=== PATIENT | female | born 1955 | race Caucasian/White ===

== ENCOUNTER 2017-10-01 16:23 | Emergency (ER) | payer SELFPAY ==
[~2017-10-01] VITALS: Ht 167.6 cm; Wt 77.0 kg
[2017-10-01] MEDS ORDERED: ONDANSETRON 2MG/ML, 2ML IVPush ONE (17:00)
[2017-10-01] MEDS ORDERED: SODIUM CHLORIDE 0.9% 1,000ML IVBOLUS ONE (17:00)
[2017-10-01] MEDS ORDERED: SODIUM CHLORIDE FLUSH 10ML SYR IVF ONE (17:00)
[2017-10-01 17:07] LABS: BASOPHILS # (AUTO) 0.03 x10^3/uL (0-0.1); BASOPHILS % (AUTO) 0 % (0-1); EOSINOPHILS # (AUTO) 0.26 x10^3/uL (0-0.4); EOSINOPHILS % (AUTO) 4 % (1-7); LYMPHOCYTES # (AUTO) 1.91 x10^3/uL (1-3.4); LYMPHOCYTES % (AUTO) 26 % (22-44); MD NO; MEAN CORPUSCULAR HEMOGLOBIN 31.6 pg (27.0-34.8); MEAN CORPUSCULAR HGB CONC 33.8 g/dL (32.4-35.8); MEAN CORPUSCULAR VOLUME 93.4 fL (80-100); MEAN PLATELET VOLUME 8.5 fL (7.4-10.4); MONOCYTES # (AUTO) 0.45 x10^3/uL (0.2-0.8); MONOCYTES % (AUTO) 6 % (2-9); NEUTROPHILS % (AUTO) 63 % (42-75); PLATELET COUNT 219 x10^3/uL (130-400); RED CELL DISTRIBUTION WIDTH 12.8 % (9.6-15.2)
[2017-10-01 17:18] LABS: ALBUMIN 3.9 g/dL (3.4-5.0); ANION GAP 12 mmol/L (5-15); CALCIUM 8.7 mg/dL (8.5-10.1); CHLORIDE 107 mmol/L (98-107)
[2017-10-01 17:21] LABS: ALANINE AMINOTRANSFERASE 30 U/L (12-78); ALKALINE PHOSPHATASE 90 U/L (45-117); BILIRUBIN,TOTAL 0.3 mg/dL (0.2-1.0); CREATININE 1.16 mg/dL (0.55-1.02); TOTAL PROTEIN 7.3 g/dL (6.4-8.2)
[2017-10-01] MEDS ORDERED: ONDANSETRON 2MG/ML, 2ML ONE (17:46)
[2017-10-01 17:56] VITALS: BP 137/80
[2017-10-01 18:44] LABS: MICROSCOPIC NOT IND
[2017-10-01 18:48] LABS: CULTURE INDICATED? NO
== END 2017-10-01 19:34 | disposition other institution (70) ==
LOC: ED 19:27
DX: R10.84 Generalized abdominal pain (principal); R11.2 Nausea with vomiting, unspecified
CPT/HCPCS: 36415; 74022; 80053; 81003; 83690; 85025; 96361; 96374; 99285; J2405; J7030

== ENCOUNTER 2018-05-03 11:37 | Emergency (ER) | payer OTHER ==
[~2018-05-03] VITALS: Ht 167.6 cm; Wt 75.0 kg
[2018-05-03] MEDS ORDERED: SODIUM CHLORIDE FLUSH 10ML SYR IVF ONE (12:00)
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
[2018-05-03 12:36] LABS: BASOPHILS # (AUTO) 0.03 x10^3/uL (0-0.1); BASOPHILS % (AUTO) 0 % (0-1); EOSINOPHILS # (AUTO) 0.02 x10^3/uL (0-0.4); EOSINOPHILS % (AUTO) 0 % (1-7); LYMPHOCYTES # (AUTO) 1.21 x10^3/uL (1-3.4); LYMPHOCYTES % (AUTO) 16 % (22-44); MD NO; MEAN CORPUSCULAR HEMOGLOBIN 32.3 pg (27.0-34.8); MEAN CORPUSCULAR HGB CONC 33.9 g/dL (32.4-35.8); MEAN CORPUSCULAR VOLUME 95.5 fL (80-100); MEAN PLATELET VOLUME 8.7 fL (7.4-10.4); MONOCYTES % (AUTO) 5 % (2-9); NEUTROPHILS # (AUTO) 6.06 x10^3/uL (1.8-6.8); NEUTROPHILS % (AUTO) 79 % (42-75); PLATELET COUNT 223 x10^3/uL (130-400); RED BLOOD COUNT 5.19 x10^6/uL (3.82-5.3); RED CELL DISTRIBUTION WIDTH 12.6 % (9.6-15.2)
[2018-05-03 12:46] LABS: ALANINE AMINOTRANSFERASE 23 U/L (12-78); ALBUMIN 4.3 g/dL (3.4-5.0); ANION GAP 11 mmol/L (5-15); CALCIUM 9.4 mg/dL (8.5-10.1); CHLORIDE 113 mmol/L (98-107); CREATININE 0.84 mg/dL (0.55-1.02)
[2018-05-03 12:48] LABS: ALKALINE PHOSPHATASE 109 U/L (45-117); BILIRUBIN,TOTAL 0.7 mg/dL (0.2-1.0); TOTAL PROTEIN 7.8 g/dL (6.4-8.2)
--- NOTE | 2018-05-03 13:52 | NUR ---
PT MINCATHED AND SENT TO LAB
[2018-05-03 14:07] LABS: MICROSCOPIC NOT IND
[2018-05-03 14:09] LABS: CULTURE INDICATED? NO
[2018-05-03 14:57] LABS: AMPHETAMINE SCREEN, URINE Positive (Negative); BARBITURATE SCREEN, URINE Negative (Negative); BENZODIAZEPINE SCREEN, URINE Negative (Negative); CANNABINOID SCREEN, URINE Positive (Negative)
--- NOTE | 2018-05-03 14:58 | NUR ---
PT RESTING IN BED. FAMILY AT BEDSIDE. PT WILL BE ADMITTED TO [address] [place] [address]
[2018-05-03 14:59] LABS: COCAINE SCREEN, URINE Negative (Negative); METHADONE SCREEN, URINE Negative (Negative); OPIATE SCREEN, URINE Negative (Negative)
--- NOTE | 2018-05-03 15:05 | NUR ---
PT GIVEN WATER. PT STARTING TALKING TO ME WITH PRANAY AT BEDSIDE
[2018-05-03 15:10] LABS: SALICYLATE LEVEL < 1.7 mg/dL (2.8-20.0)
[2018-05-03 15:11] LABS: ACETAMINOPHEN < 2 mcg/mL (10-30)
--- NOTE | 2018-05-03 15:26 | NUR ---
PT STOOD AT EDGE OF BED AND THEN BEGAN YELLING. PT THEN ESORTED BACK TO BED.
--- NOTE | 2018-05-03 15:48 | NUR ---
REPORT GIVEN TO AMADOR DIXON
--- NOTE | 2018-05-03 15:49 | NUR ---
PT MOVED TO ROOM 41.
--- NOTE | 2018-05-03 15:55 | NUR ---
PT MOVED TO ROOM 39 REC REPORT FROM SURY PT WATCHING TV AT THIS TIME REFUSING TO VERBALLY COMMUNICATE
--- NOTE | 2018-05-03 16:09 | NUR ---
[facility] CALLED AND MESSAGE LEFT ON THEIR VOICEMAIL FOR POSSIBLE EVALUATION.
--- NOTE | 2018-05-03 16:35 | NUR ---
THROUGHPUT NOTE: ERICK FROM [facility] CALLED BACK AND INFORMATION PROVIDED REQUESTED. ERICK ATTEMPTING TO GET PT SEEN DOWN HERE.
--- NOTE | 2018-05-03 16:40 | NUR ---
PT STEPPED BY SITTER IN THE FLORES AND BEGAN TO RUN REDIRECTED AND A TECH JOGGED WITH THE PT AROOUND THE UNIT BACK TO HER ROOM AND THEN ASSITED BACK INTO HER ROOM WITH SECURITY
[2018-05-03] MEDS ORDERED: HALOPERIDOL 5 MG/ML ONE (17:12)
--- NOTE | 2018-05-03 17:12 | NUR ---
THROUGHPUT TASK RN: [facility] AT BEDSIDE.
[2018-05-03] MEDS ORDERED: HALOPERIDOL 5 MG/ML IM ONE (17:30)
--- NOTE | 2018-05-03 18:10 | NUR ---
OFFERED A MEAL PT DECLINED
--- NOTE | 2018-05-03 18:12 | NUR ---
THROUGHPUT NOTE: PACKET FAXED TO [facility], ROBERTO CARLOS WIN.
--- NOTE | 2018-05-03 18:18 | NUR ---
THROUGHPUT NOTE: [facility] DECLINED PT DUE TO NO AVAILABLE BED. [facility] TO CALL IN THE AM IF THEY HAVE A DC.
--- NOTE | 2018-05-03 18:31 | NUR ---
THROUGHPUT NOTE: PACKET FAXED TO [facility].
--- NOTE | 2018-05-03 19:35 | NUR ---
THROUGHPUT NOTE: SPOKE TO AMADOR AT [facility] CONFIRMING SPECIFICATIONS CHECKER OF PACKET THAT WAS FAXED. PER AMADOR, THEY MAY BE ABLE TO CONFIRM THE INSURANCE IN THE AM.
--- NOTE | 2018-05-03 19:53 | NUR ---
pt attempted to leave room. 2 emt's and this rn managed to get her back into bed. will notify hospitalist
[2018-05-03] MEDS ORDERED: OLANZAPINE 5 MG TABLET ONE (19:56)
[2018-05-03] MEDS ORDERED: OLANZAPINE 5 MG TABLET PO ONE (20:00)
--- NOTE | 2018-05-03 20:04 | NUR ---
MEDICATION REQUESTED FROM PHARM
[2018-05-03] MEDS ORDERED: OLANZAPINE 10 MG INJ IM ONE (20:30)
--- NOTE | 2018-05-03 20:49 | NUR ---
pt resting on gurney. rr even and unlabored. pt is calm and cooperative att. sitter outside of room for safety. room secured with belongings locked up
--- NOTE | 2018-05-03 21:14 | NUR ---
pt attempted ran out of room and was walking the hallways. pt escorted back into room with sitter assistance
--- NOTE | 2018-05-03 21:20 | NUR ---
pt medicated per emar
--- NOTE | 2018-05-04 00:27 | NUR ---
PT ASLEEP ON GURNEY. RR EVEN AND UNLABORED. ROOM SECURED WITH SITTER OUTSIDE OF ROOM FOR SAFETY.
--- NOTE | 2018-05-04 01:15 | NUR ---
REPORT REC AT THIS TIME. PT CURRENTLY SLEEPING QUIETLY, SITTER OUTSIDE ROOM FOR PT SAFETY, PT IN MONITORED ROOM WITH CAMERA.
--- NOTE | 2018-05-04 01:45 | NUR ---
PT AWAKENED FOR VS, SPEECH IS NONSENSICAL, STATES THAT SHE IS VERY PREGNENT, FOOD AND FLUID AT BEDSIDE.
--- NOTE | 2018-05-04 03:13 | NUR ---
SLEEPING QUIETLY, RESP RATE EVEN AND REGULARU, SITTER OUTSIDE ROOM FOR PT SAFETY WELL PT BEING IN MONITORED CAMERA ROOM
--- NOTE | 2018-05-04 05:08 | NUR ---
SLEEPING QUIETLY, SITTER OUTSIDE ROOM FOR PT SAFETY.
--- NOTE | 2018-05-04 05:21 | NUR ---
CEDRIC DIXON DOWN FROM 3E TO EVALUATE PT, PT IS HAS NON SENSICAL SPEECH AND IS NOT ABLE TO BE TELEPSYCHED.
--- NOTE | 2018-05-04 06:01 | NUR ---
SLEEPING QUIETLY, RESP RATE EVEN AND REGUALR, SITTER OUTSIDE ROOM FOT PT SAFETY, IN CAMERA ROOM ALSO MONITORED FROM NURSING STATION
--- NOTE | 2018-05-04 07:00 | NUR ---
THROUGHPUT RN: PACKET FAXED BY [facility]IFT.
--- NOTE | 2018-05-04 07:16 | NUR ---
Recieved report from DESTINY Paul. All questions answered. Pt resting on gurney. NADN. No needs expressed at this time. Pt has unlabored respirations equal bilaterally.
--- NOTE | 2018-05-04 07:18 | NUR ---
Pt requesting to make phone call to . Pt escorted to phone by gabrielle.
--- NOTE | 2018-05-04 08:33 | NUR ---
[facility] [place]: VASHTI AZEVDEO CALLED FOR REPORT, CONTACT INFO [phone]
[2018-05-04 08:45] LABS: BASOPHILS # (AUTO) 0.05 x10^3/uL (0-0.1); BASOPHILS % (AUTO) 1 % (0-1); EOSINOPHILS # (AUTO) 0.08 x10^3/uL (0-0.4); EOSINOPHILS % (AUTO) 1 % (1-7); LYMPHOCYTES # (AUTO) 2.27 x10^3/uL (1-3.4); LYMPHOCYTES % (AUTO) 26 % (22-44); MD NO; MEAN CORPUSCULAR HEMOGLOBIN 31.8 pg (27.0-34.8); MEAN CORPUSCULAR HGB CONC 33.2 g/dL (32.4-35.8); MEAN CORPUSCULAR VOLUME 95.8 fL (80-100); MEAN PLATELET VOLUME 8.8 fL (7.4-10.4); MONOCYTES # (AUTO) 0.58 x10^3/uL (0.2-0.8); MONOCYTES % (AUTO) 7 % (2-9); NEUTROPHILS # (AUTO) 5.68 x10^3/uL (1.8-6.8); NEUTROPHILS % (AUTO) 66 % (42-75); PLATELET COUNT 232 x10^3/uL (130-400); RED BLOOD COUNT 5.22 x10^6/uL (3.82-5.3); RED CELL DISTRIBUTION WIDTH 12.9 % (9.6-15.2)
--- NOTE | 2018-05-04 08:59 | NUR ---
Provided report to DESTINY Araiza. All questions answered. DESTINY Araiza will call back to confirm pt is eating, drinking, and voiding. No other questions asked.
[2018-05-04 09:03] LABS: ANION GAP 8 mmol/L (5-15); CALCIUM 9.5 mg/dL (8.5-10.1); CHLORIDE 107 mmol/L (98-107); CREATININE 0.94 mg/dL (0.55-1.02)
--- NOTE | 2018-05-04 09:14 | NUR ---
Pt voided in gurney. Cleaned pt and bedding. Pt provided breakfast tray. Pt declined eating at this time. Removed dinner tray from last night in pt's roomm. Pt ate meat from sandwich and drank one cup of water. DESTINY Araiza at [facility] updated on pt's eating, drinking, and voiding.
--- NOTE | 2018-05-04 11:07 | NUR ---
LATE NOTE ENTRY FOR 1030. Pt's brought pt a card and a balloon. Balloon outside of pt's room at this time. Pt has card at bedside. Sitter near doorway in direct line of sight for observation. NADN. No needs expressed. All safety measures in place.
--- NOTE | 2018-05-04 11:07 | NUR ---
Pt resting on gurney asleep. Warm blanket provided for pt. Sitter near doorway in direct line of sight for observation. NADN. No needs expressed.
--- NOTE | 2018-05-04 11:55 | NUR ---
THROUGHPUT RN: ROBERTO CARLOS UNABLE TO ACCEPT PT AT THIS TIME D/T BEING UNABLE TO VERIFY INSURANCE
--- NOTE | 2018-05-04 12:08 | NUR ---
Pt's mom came by to visit pt. NADN. [place] near doorway in direct line of sight for observation. Pt provided lunch tray.
--- NOTE | 2018-05-04 15:27 | NUR ---
THROUGHPUT RN: SPOKE W/ RN GENE FROM [facility], PT MAY BE ACCEPTED TO [facility].
[2018-05-04] MEDS ORDERED: HALOPERIDOL 5 MG/ML IM PRN (16:00)
[2018-05-04] MEDS ORDERED: HALOPERIDOL 5 MG TABLET PO PRN (16:00)
[2018-05-04] MEDS ORDERED: ACETAMINOPHEN 325 MG TABLET PO PRN (16:00)
[2018-05-04 16:27] VITALS: BP 129/72
--- NOTE | 2018-05-04 16:30 | NUR ---
LATE NOTE ROSE FROM 1300: Pt resting on gurney. Mother at bedside. NADN. No needs expressed. Pt ate entire lunch meal tray. Pt ambulated with steady gait and balance to restroom. Sitter near doorway in direct line of sight for observation.
--- NOTE | 2018-05-04 16:31 | NUR ---
LATE NOTE ENTRY FOR 1400: Pt resting on gurney sleeping. at bedside. NADN. No needs expressed. Sitter near doorway in direct line of sight for observation.
--- NOTE | 2018-05-04 16:32 | NUR ---
LATE NOTE ENTRY FOR 1500: Pt resting on gurney. Mother at bedside. NADN. No needs expressed. Family asking ED RN if pt's hold can be lifted and pt can go home. Family educated on legal 1999. Family stated understanding. Sitter near doorway in direct line of sight for observation.
--- NOTE | 2018-05-04 16:33 | NUR ---
Pt resting on [place]. [place]. No needs expressed. Sitter near doorway in direct line of sight for observation.
--- NOTE | 2018-05-04 17:48 | NUR ---
THROUGHPUT RN: PT ACCEPTED BY REBEKA JEROME AT BEDSIDE TO TRANSFER PT.
--- NOTE | 2018-05-04 17:57 | NUR ---
[facility] transporting pt to [facility]. Pt left with all personal belongings.
== END 2018-05-05 18:00 ==
LOC: ED 14:54 → UNDOADMOB 14:55 → EDIP 14:55 → ED 15:00 → INTOOBSV 05-04 16:55 → OBSVTOIN 05-04 16:55 → ED 05-05 18:00
DX: F43.0 Acute stress reaction (principal)
CPT/HCPCS: 36415; 70450; 80048; 80053; 80307; 80329; 81003; 83605; 84443; 85025; 96372; 99285; J1630; G0480